=== PATIENT | female | born 1955 | race Caucasian/White ===

== ENCOUNTER 2019-02-23 17:00 | Emergency (ER) | payer OTHER ==
--- OUTSIDE RECORDS SUMMARY | 2019-02-23 17:06 | XMS REPORT | Continuity of Care Document ---
:1955 External Reference #:[id number] Author Name Piotr Lima M.D. Address 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 Onset: 01/20/2014 Incipient senile cataract Piotr Lima M.D. Onset: 01/20/2014 Vitreous degeneration Piotr Lima M.D. Onset: 08/05/2016 Family History Date Family Member(s) Observation Comments Father Glaucoma Father due to Pneumonia () Father HTN Mother Cancer Mother due to Breast Cancer () Social History Type Date Description Comments Sex Unknown ETOH Use Currently consumes alcohol Tobacco Use Start: Unknown Patient has never smoked Smoking Status Reviewed: 02/18/19 Patient has never smoked Allergies, Adverse Reactions, Alerts Description No Known Drug Allergies Medications Active Medications SIG Qnty Indications Ordering Provider Date Levothyroxine Sodium Vernon Valdez MD 88mcg Tablets Vital Signs Date Vital Result Comment 02/18/2019 2:50pm Intraocular Pressure Right Eye 19 mmHg Intraocular Pressure Left Eye 19 mmHg 08/19/2018 1:47pm Intraocular Pressure Right Eye 19 mmHg Intraocular Pressure Left Eye 19 mmHg 02/16/2018 3:05pm Intraocular Pressure Right Eye 18 mmHg Intraocular Pressure Left Eye 18 mmHg 08/18/2017 2:20pm Intraocular Pressure Right Eye 18 mmHg Intraocular Pressure Left Eye 18 mmHg 02/13/2017 3:04pm Intraocular Pressure Right Eye 16 mmHg Intraocular Pressure Left Eye 16 mmHg 08/05/2016 1:17pm Intraocular Pressure Right Eye 16 mmHg Intraocular Pressure Left Eye 16 mmHg 02/02/2016 1:37pm Intraocular Pressure Right Eye 17 mmHg Intraocular Pressure Left Eye 17 mmHg 07/27/2015 9:32am Intraocular Pressure Right Eye 15 mmHg Intraocular Pressure Left Eye 16 mmHg 07/22/2014 1:14pm Intraocular Pressure Right Eye 19 mmHg Intraocular Pressure Left Eye 18 mmHg 01/20/2014 1:48pm Intraocular Pressure Right Eye 17 mmHg Intraocular Pressure Left Eye 17 mmHg Procedures Date Code Description Status 02/18/2019 32683 Oct Retina Completed 02/18/2019 36034 Eye Exam Est Intermediate Completed 08/19/2018 60632 Fundus Photography W/Interpretation & Report Completed 08/19/2018 29303 Refraction Completed 08/19/2018 17211 Eye Exam Est Comprehensive Completed 02/16/2018 93234 Oct Retina Completed 02/16/2018 77144 Eye Exam Est Intermediate Completed 08/18/2017 06427 Fundus Photography W/Interpretation & Report Completed 08/18/2017 63683 Eye Exam Est Intermediate Completed 02/13/2017 63153 Oct Retina Completed 02/13/2017 32974 Eye Exam Est Intermediate Completed 08/05/2016 68337 Eye Exam Est Comprehensive Completed 08/05/2016 96260 Refraction Completed 08/05/2016 38059 Fundus Photography W/Interpretation & Report Completed 02/02/2016 84617 Oct Retina Completed 02/02/2016 95798 Eye Exam Est Intermediate Completed 07/27/2015 62473 Fundus Photography W/Interpretation & Report Completed 07/27/2015 67212 Refraction Completed 07/27/2015 09706 Eye Exam Est Comprehensive Completed 01/20/2015 96331 Oct Retina Completed 01/20/2015 55100 Eye Exam Est Intermediate Completed 07/22/2014 42843 Fundus Photography W/Interpretation & Report Completed 07/22/2014 24802 Ophthalmoscopy Subsequent Completed 07/22/2014 74580 Eye Exam Est Comprehensive Completed 01/20/2014 45898 Eye Exam Est Intermediate Completed 01/20/2014 46638 Oct Retina Completed 05/03/2011 92639 Fundus Photography W/Interpretation & Report Completed 05/03/2011 81613 Ophthalmoscopy Subsequent Completed 05/03/2011 91764 Eye Exam Est Comprehensive Completed 04/23/2010 93624 Fundus Photography W/Interpretation & Report Completed 04/23/2010 27676 Ophthalmoscopy Subsequent Completed 04/23/2010 92939 Eye Exam Est Comprehensive Completed 04/06/2009 76674 Ophthalmoscopy Subsequent Completed 04/06/2009 29290 Refraction Completed 04/06/2009 02826 Eye Exam Est Comprehensive Completed 03/28/2008 33140 Eye Exam Est Comprehensive Completed 03/28/2008 41783 Refraction Completed 03/28/2008 77459 Ophthalmoscopy Subsequent Completed 03/28/2008 85454 Fundus Photography W/Interpretation & Report Completed 09/16/2007 39765 Fundus Photography W/Interpretation & Report Completed 09/16/2007 68818 Ophthalmoscopy Subsequent Completed 09/16/2007 98255 Eye Exam Est Comprehensive Completed 03/18/2007 63077 Fundus Photography W/Interpretation & Report Completed 03/18/2007 28804 Ophthalmoscopy Initial Completed 03/18/2007 01969 Eye Exam Est Comprehensive Completed 09/17/2006 82811 Ophthalmoscopy Subsequent Completed 09/17/2006 19637 Eye Exam Est Comprehensive Completed 03/18/2006 00531 Ophthalmoscopy Initial Completed 03/18/2006 29644 Refraction Completed 03/18/2006 61544 Eye Exam New Comprehensive Completed Plan of Treatment 02/18/2019 - Piotr Lima M.D.H35.371 Puckering of macula, right eyeH25.093 Other age-related incipient cataract, bilateralFollow up:6 mos full
[2019-02-23 17:22] VITALS: BP 141/81
--- NOTE | 2019-02-23 18:50 | UC ---
Skin Complaint HPI - HPI Summary HPI Summary: 63 y/o female presents to the urgent care c/o tick bite on his left lower leg he noticed this morning. Pt tried to removed it, but he thinks some remnants still present. He was outside yesterday. Pt denies fever, SOB, joint pains, OJSEPH , dizziness, SOB, chest pain, abdominal pain, N/V/d. No Hx of tick bites in the past - History of Current Complaint Chief Complaint: UCSkin Time Seen by Provider: 02/23/19 18:49 Stated Complaint: TICK Hx Obtained From: Patient Onset/Duration: Gradual Onset, Lasting Days - 1 day, Still Present, Worse Since - this morning Skin Exposure Onset/Duration: Days Ago - 1 day Timing: Constant Onset Severity: Mild Current Severity: Mild Pain Intensity: 1 Pain Scale Used: 0-10 Numeric Location: Discrete - left lower leg Character: Redness Aggravating Factor(s): Touch Alleviating Factor(s): Other - tick emoval Associated Signs & Symptoms: Positive: Rash - left lower leg tick bite Related History: Possible Reaction to: Insect - tick - Allergy/Home Medications Allergies/Adverse Reactions: Allergies Allergy/AdvReac Type Severity Reaction Status Date / Time No Known Allergies Allergy Verified 02/23/19 17:23 PMH/Surg Hx/FS Hx/Imm Hx Previously Healthy: Yes Endocrine History: Hypothyroidism - Surgical History Surgical History: None - Family History Known Family History: Positive: None - Pt denies FMHX - Social History Occupation: Employed Full-time Lives: With Family Alcohol Use: Weekly Substance Use Type: None Smoking Status (MU): Never Smoked Tobacco Review of Systems All Other Systems Reviewed And Are Negative: Yes Constitutional: Positive: Negative Skin: Positive: Other - left lower leg tick bite Eyes: Positive: Negative ENT: Positive: Negative Respiratory: Positive: Negative Cardiovascular: Positive: Negative Gastrointestinal: Positive: Negative Genitourinary: Positive: Negative Motor: Positive: Negative Neurovascular: Positive: Negative Musculoskeletal: Positive: Negative Neurological: Positive: Negative Psychological: Positive: Negative Is Patient Immunocompromised?: No Physical Exam - Summary Physical Exam Summary: Vital Signs Reviewed: Yes General: well developed, well nourished male sitting in the examining table w/o any apparent distress. Eyes: Positive: Conjunctiva Clear - PERRLA, EOMI ENT: Positive: Normal ENT inspection, Hearing grossly normal, Pharynx normal, TMs normal Neck: Positive: Supple, Nontender, No Lymphadenopathy Respiratory: Positive: Chest nontender, Lungs clear, Normal breath sounds Cardiovascular: Positive: RRR, No Murmur, Pulses Normal Abdomen Description: Positive: Nontender, No Organomegaly, Soft. Negative: CVA Tenderness (R), CVA Tenderness (L) Bowel Sounds: Positive: Present Musculoskeletal: Positive: Strength Intact, ROM Intact, No Edema Neurological Exam: Normal Psychological Exam: Normal Skin: Positive: rashes - Posterior mid lower left leg with tick bite with surrounding erythema, non tender to palpation. remnant of tick still present, no swelling or drainage observed Triage Information Reviewed: Yes Vital Signs: Initial Vital Signs Temp 98.4 F 02/23/19 17:17 Pulse 79 02/23/19 17:17 Resp 16 02/23/19 17:17 BP 141/81 02/23/19 17:17 Pulse Ox 97 02/23/19 17:17 Course/Dx - Course Course Of Treatment: 63 y/o female presents to the urgent care c/o tick bite on his left lower leg he noticed this morning. Pt tried to removed it, but he thinks some remnants still present. He was outside yesterday. Pt denies fever, SOB, joint pains, JOSEPH , dizziness, SOB, chest pain, abdominal pain, N/V/d. No Hx of tick bites in the past. Hx obtained. Remnants removed w/ tweezers. skin cleansing w/ alcohol swabs and Bacitrain oint applied. Antibiotic prophylaxis with Doxycycline given to the patient to prevent lyme Disease.. Pt tolerated well medication. Pt advised to observe the area for the development or Erythema Migrans for upto 30 days following exposure. Advised if he develops fever or erythema Migrans to return to the clinic or PCP for further treatment. Pt's BP is elevated today advised to decrease salt in diet, monitor BP and f/u with PCP for further management. Pt understood and agreed with plan of care. - Differential Diagnoses - Skin Complaint Differential Diagnoses: Abscess, Cellulitis, Local Allergic Reaction, Medication ; Adverse Reaction, Poison Susu, Tick Born Illness, Other - insect bite, bee sting - Diagnoses Provider Diagnosis: Tick bite of left lower leg, Elevated BP without diagnosis of hypertension Discharge - Sign-Out/Discharge Documenting (check all that apply): Patient Departure - D/C home All imaging exams completed and their final reports reviewed: No Studies - Discharge Plan Condition: Stable Disposition: HOME Patient Education Materials: Tick Bite (ED) Referrals: Vernon Valdez MD [Primary Care Provider] - 2 Weeks Mariana ABBOTT,Jose Angel Nolen [Medical Doctor] - If Needed Additional Instructions: 1- Please observe the area for the development or Erythema Migrans for upto 30 days following exposure. Components of the tick saliva can cause transient erythema that should not be confused with Erythema Migrans. If you develop the bull's eye rash, fever, joint pains please return to the urgent care or f/u with your PCP for further management. Please apply bacitracin oint as directed to prevent infection. 2-Antibiotic prophylaxis with Doxycycline was given to you today to prevent lyme Disease. Lyme serology can be drawn in 2 weeks with your PCP to r/o Lyme disease since there is probability of negative results at early exposure. 3- Your BP is elevated today. please decrease salt in your diet, monitor BP and if it continues to be elevated please f/u with your PCP for further management. - Billing Disposition and Condition Condition: STABLE Disposition: Home
[2019-02-23] MEDS: DOXYcycline CAP(*) 100 MG PO ONE (19:18)
== END 2019-02-23 19:26 | disposition home or self-care (01) ==
LOC: UCEAST 17:00
DX: S80.862A Insect bite (nonvenomous), left lower leg, initial encounter (principal); W57.XXXA Bitten or stung by nonvenomous insect and other nonvenomous arthropods, initial encounter; Y92.9 Unspecified place or not applicable
CPT/HCPCS: 99211; A9270-GY; G0463